=== PATIENT | female | born 1980 | race Two or more races ===

== ENCOUNTER 2019-09-03 15:20 | Inpatient (IN) | payer OTHER ==
[~2019-09-03] VITALS: Ht 167.6 cm; Wt 80.8 kg
[~2019-09-03 15:20] MED LIST: NOCURR
[2019-09-03] MEDS ORDERED: METF-960 PO (15:26)
[2019-09-03] MEDS ORDERED: ATOR40TA28 PO (15:26)
[2019-09-03] MEDS ORDERED: ZOLPIDEM TARTRATE 5 MG TABLET PO PRN (15:30)
[2019-09-03] MEDS ORDERED: MAGNESIUM HYDROXIDE SUSPENSION 30 ML UDCUP PO PRN (15:30)
[2019-09-03] MEDS ORDERED: DEXTROSE 50%-WATER 25 GM/50 ML SYRINGE IVP PRN (15:30)
[2019-09-03 15:39] LABS: BASOPHILS % (AUTO) 0.6 % (0.0-2.0); EOSINOPHILS % (AUTO) 5.3 % (1.0-6.0); HEMATOCRIT 41.9 % (36-46); HEMOGLOBIN 14.1 g/dL (12.0-16.0); LYMPHOCYTES # (AUTO) 3.6 K/uL (1.0-4.8); LYMPHOCYTES % (AUTO) 38.9 % (22.0-44.0); MEAN CORPUSCULAR HGB CONC 33.5 G/dL (31.0-37.0); MEAN CORPUSCULAR VOLUME 93 fL (80-100); MONOCYTES # (AUTO) 0.7 K/uL (0.1-1.0); MONOCYTES % (AUTO) 7.2 % (2.0-9.0); NEUTROPHILS # (AUTO) 4.5 K/uL (1.8-7.7); PLATELET COUNT (AUTO) 223 K/uL (150-450); RED BLOOD CELL COUNT(AUTO) 4.53 MIL/uL (4.00-5.20); RED CELL DISTRIBUTION WIDTH 12.2 % (11.5-14.5)
[2019-09-03 15:48] LABS: ANION GAP 13 mmol/L (8-16); CALCIUM, TOTAL 9.5 mg/dL (8.8-10.5); CARBON DIOXIDE 25 mmol/L (22-29); CHLORIDE 104 mmol/L (98-107); CREATININE 0.83 mg/dL (0.60-1.30); GLOMERULAR FILTR. RATE CALC > 60 mL/min (>60); GLUCOSE,RANDOM 85 mg/dL (70-110); POTASSIUM 4.4 mmol/L (3.5-5.1); SODIUM SERUM 142 mmol/L (136-145); UREA NITROGEN, BLOOD 8 mg/dL (7-18)
[2019-09-03 15:54] LABS: ALANINE AMINOTRANSFERASE 46 U/L (12-78); ALBUMIN 3.8 g/dL (3.4-5.0); ALKALINE PHOSPHATASE 51 U/L (46-116); ASPARTATE AMINOTRANSFERASE 27 U/L (15-37); BILIRUBIN,TOTAL 0.4 mg/dL (0.1-1.0); TOTAL PROTEIN, SERUM 8.1 g/dL (6.4-8.2)
[2019-09-03] MEDS: ACETAMINOPHEN 325 MG TABLET PO PRN (17:04)
[2019-09-03 17:15] VITALS: BP 114/80
[2019-09-03 20:16] VITALS: BP 98/64
[2019-09-03 20:18] LABS: AMPHET/METH SCREEN,URINE NEGATIVE (NEGATIVE); BARBITURATE SCREEN, URINE NEGATIVE (NEGATIVE); BENZODIAZEPINES SCREEN,URINE NEGATIVE (NEGATIVE); CANNABINOID SCREEN,URINE NEGATIVE (NEGATIVE); COCAINE SCREEN,URINE NEGATIVE (NEGATIVE); METHADONE SCREEN, URINE NEGATIVE (NEGATIVE); OPIATE SCREEN,URINE NEGATIVE (NEGATIVE)
[2019-09-03 20:20] LABS: PHENCYCLIDINE SCREEN,URINE NEGATIVE (NEGATIVE)
[2019-09-03] MEDS: INSULIN LISPRO 100 UNITS/ML SQ PRN (20:39)
[2019-09-03 21:56] LABS: GLUCOMETER DEV NAME(LOC) 6N.2; GLUCOSE,POINT OF CARE 114 MG/DL (70-110)
[2019-09-03 21:56] LABS: GLUCOMETER DEV NAME(LOC) 6N.2; GLUCOSE,POINT OF CARE 64 MG/DL (70-110)
[2019-09-03 21:56] LABS: GLUCOMETER DEV NAME(LOC) 6N.2; GLUCOSE,POINT OF CARE 165 MG/DL (70-110)
[2019-09-04 04:47] VITALS: BP 99/62
[2019-09-04 07:39] LABS: GLUCOMETER DEV NAME(LOC) 6N.2; GLUCOSE,POINT OF CARE 82 MG/DL (70-110)
[2019-09-04 07:42] VITALS: BP 94/57
[2019-09-04] MEDS: SERTRALINE HCL 50 MG TABLET PO SCH (11:19)
[2019-09-04 11:28] LABS: GLUCOMETER DEV NAME(LOC) 6N.2; GLUCOSE,POINT OF CARE 106 MG/DL (70-110)
[2019-09-04] MEDS ORDERED: HydrOXYzine PAMOATE 50 MG CAPSULE PO PRN (12:45)
[2019-09-04 20:15] VITALS: BP 107/65
[2019-09-04] MEDS: RisperiDONE 1 MG TABLET PO SCH (20:29)
[2019-09-04 22:21] LABS: GLUCOMETER DEV NAME(LOC) 6N.2; GLUCOSE,POINT OF CARE 126 MG/DL (70-110)
[2019-09-04 22:21] LABS: GLUCOMETER DEV NAME(LOC) 6N.2; GLUCOSE,POINT OF CARE 120 MG/DL (70-110)
[2019-09-05 04:00] VITALS: BP 92/58
[2019-09-05 06:31] LABS: GLUCOMETER DEV NAME(LOC) 6N.2; GLUCOSE,POINT OF CARE 101 MG/DL (70-110)
[2019-09-05 08:02] VITALS: BP 93/63
[2019-09-05] MEDS: SERTRALINE HCL 50 MG TABLET PO SCH (08:10)
[2019-09-05 09:16] LABS: ANION GAP 7 mmol/L (8-16); CALCIUM, TOTAL 8.9 mg/dL (8.8-10.5); CARBON DIOXIDE 31 mmol/L (22-29); CHLORIDE 104 mmol/L (98-107); CREATININE 0.95 mg/dL (0.60-1.30); GLOMERULAR FILTR. RATE CALC > 60 mL/min (>60); GLUCOSE,RANDOM 75 mg/dL (70-110); POTASSIUM 4.2 mmol/L (3.5-5.1); SODIUM SERUM 142 mmol/L (136-145); UREA NITROGEN, BLOOD 11 mg/dL (7-18)
[2019-09-05] MEDS: INSULIN LISPRO 100 UNITS/ML SQ PRN (12:36)
[2019-09-05 13:14] LABS: GLUCOMETER DEV NAME(LOC) 6N.2; GLUCOSE,POINT OF CARE 179 MG/DL (70-110)
[2019-09-05 15:34] VITALS: BP 95/54
[2019-09-05 18:49] LABS: GLUCOMETER DEV NAME(LOC) 6N.2; GLUCOSE,POINT OF CARE 91 MG/DL (70-110)
[2019-09-05 19:57] VITALS: BP 107/68
[2019-09-05] MEDS: RisperiDONE 1 MG TABLET PO SCH (20:12)
[2019-09-06 05:11] VITALS: BP 93/60
[2019-09-06 06:41] LABS: GLUCOMETER DEV NAME(LOC) 6S.1; GLUCOSE,POINT OF CARE 92 MG/DL (70-110)
[2019-09-06 07:19] LABS: GLUCOMETER DEV NAME(LOC) 6N.2; GLUCOSE,POINT OF CARE 123 MG/DL (70-110)
[2019-09-06 07:52] VITALS: BP 99/60
[2019-09-06] MEDS: SERTRALINE HCL 50 MG TABLET PO SCH (09:17)
[2019-09-06 13:31] LABS: GLUCOMETER DEV NAME(LOC) 6S.1; GLUCOSE,POINT OF CARE 112 MG/DL (70-110)
[2019-09-06 15:00] VITALS: BP 97/56
[2019-09-06 17:51] LABS: GLUCOMETER DEV NAME(LOC) 6S.1; GLUCOSE,POINT OF CARE 108 MG/DL (70-110)
[2019-09-06] MEDS: RisperiDONE 1 MG TABLET PO SCH (20:02)
[2019-09-06 20:26] VITALS: BP 120/77
[2019-09-06] MEDS: INSULIN LISPRO 100 UNITS/ML SQ PRN (21:15)
[2019-09-07 04:30] VITALS: BP 94/61
[2019-09-07 05:04] LABS: GLUCOMETER DEV NAME(LOC) 6S.1; GLUCOSE,POINT OF CARE 203 MG/DL (70-110)
[2019-09-07] MEDS: ACETAMINOPHEN 325 MG TABLET PO PRN ×2 (06:03→17:39)
[2019-09-07 07:37] LABS: GLUCOMETER DEV NAME(LOC) 6S.1; GLUCOSE,POINT OF CARE 96 MG/DL (70-110)
[2019-09-07 07:53] VITALS: BP 101/54
[2019-09-07] MEDS: SERTRALINE HCL 50 MG TABLET PO SCH (09:21)
[2019-09-07 13:35] LABS: GLUCOMETER DEV NAME(LOC) 6S.1; GLUCOSE,POINT OF CARE 138 MG/DL (70-110)
[2019-09-07 15:58] VITALS: BP 107/67
[2019-09-07 17:54] LABS: GLUCOMETER DEV NAME(LOC) 6S.1; GLUCOSE,POINT OF CARE 122 MG/DL (70-110)
[2019-09-07 20:00] VITALS: BP 106/62
[2019-09-07] MEDS: INSULIN LISPRO 100 UNITS/ML SQ PRN (20:08)
[2019-09-07] MEDS: RisperiDONE 1 MG TABLET PO SCH (20:08)
[2019-09-08 04:00] VITALS: BP 93/44
[2019-09-08 07:14] LABS: GLUCOMETER DEV NAME(LOC) 6S.1; GLUCOSE,POINT OF CARE 158 MG/DL (70-110)
[2019-09-08 07:14] LABS: GLUCOMETER DEV NAME(LOC) 6S.1; GLUCOSE,POINT OF CARE 99 MG/DL (70-110)
[2019-09-08 08:13] VITALS: BP 95/63
[2019-09-08] MEDS: SERTRALINE HCL 50 MG TABLET PO SCH (08:43)
[2019-09-08] MEDS: ACETAMINOPHEN 325 MG TABLET PO PRN (12:30)
[2019-09-08] MEDS: INSULIN LISPRO 100 UNITS/ML SQ PRN (12:33)
[2019-09-08 15:57] VITALS: BP 98/59
[2019-09-08 16:28] LABS: GLUCOMETER DEV NAME(LOC) 6S.1; GLUCOSE,POINT OF CARE 178 MG/DL (70-110)
[2019-09-08 20:13] VITALS: BP 119/71
[2019-09-08] MEDS: RisperiDONE 1 MG TABLET PO SCH (20:29)
[2019-09-08 20:38] LABS: GLUCOMETER DEV NAME(LOC) 6N.2; GLUCOSE,POINT OF CARE 99 MG/DL (70-110)
[2019-09-09 05:09] VITALS: BP 97/58
[2019-09-09 08:05] VITALS: BP 99/66
[2019-09-09] MEDS: SERTRALINE HCL 50 MG TABLET PO SCH (08:27)
[2019-09-09] MEDS ORDERED: SODIUM CHLORIDE 0.9% IRRIG BTL 1,000 ML IRRIG ONE (08:33)
[2019-09-09] MEDS: ACETAMINOPHEN 325 MG TABLET PO PRN (09:44)
[2019-09-09] MEDS: INSULIN LISPRO 100 UNITS/ML SQ PRN (11:52)
[2019-09-09 13:46] LABS: GLUCOMETER DEV NAME(LOC) 6S.1; GLUCOSE,POINT OF CARE 124 MG/DL (70-110)
[2019-09-09 13:47] LABS: GLUCOMETER DEV NAME(LOC) 6S.1; GLUCOSE,POINT OF CARE 147 MG/DL (70-110)
[2019-09-09 13:47] LABS: GLUCOMETER DEV NAME(LOC) 6S.1; GLUCOSE,POINT OF CARE 93 MG/DL (70-110)
[2019-09-09] MEDS ORDERED: SERT50TA12 PO (14:22)
[2019-09-09] MEDS ORDERED: RISP1 PO (14:22)
== END 2019-09-09 16:40 | DRG 885 ==
LOC: EMS 15:20 → 6S 16:27
PROVIDERS: ADMIT Internal Medicine; ATTEND Internal Medicine
DX: F33.3 Major depressive disorder, recurrent, severe with psychotic symptoms (principal); R45.851 Suicidal ideations; E11.9 Type 2 diabetes mellitus without complications; B19.20 Unspecified viral hepatitis C without hepatic coma; F41.9 Anxiety disorder, unspecified; E78.00 Pure hypercholesterolemia, unspecified; Z79.899 Other long term (current) drug therapy; Z86.11 Personal history of tuberculosis; Z98.51 Tubal ligation status
CPT/HCPCS: 70450; 80307; G0480